=== PATIENT | female | born 1970 ===

== ENCOUNTER 2025-03-11 07:45 | Inpatient (IN) | payer OTHER ==
[~2025-03-11] VITALS: Ht 162.6 cm; Wt 82.1 kg
[2025-03-13] MEDS ORDERED: CEFTRIAXONE SODIUM 2,000 MG VIAL IV ONE (08:45)
[2025-03-13] MEDS ORDERED: METRONIDAZOLE/SODIUM CHLORIDE 500 MG/100 ML PIGGYBACK IV ONE (08:45)
[2025-03-13] MEDS ORDERED: hydrALAZINE HCL 20 MG VIAL IV ONE (10:30)
[2025-03-13] MEDS ORDERED: SUGAMMADEX SODIUM 200 MG/2 ML VIAL IV ONE (10:30)
[2025-03-13] MEDS ORDERED: TAMSULOSIN HCL 0.4 MG CAP PO SCH (11:10)
[2025-03-13] MEDS ORDERED: LACTOBACILLUS ACIDOPHILUS 1 CAP CAP PO SCH (11:10)
[2025-03-13] MEDS ORDERED: CIPROFLOXACIN IN 5 % DEXTROSE 400 MG/200 ML PIGGYBAG IV SCH (11:10)
[2025-03-13] MEDS ORDERED: MORPHINE SULFATE 4 MG/ML CARTRIDGE IV PRN (11:15)
[2025-03-13] MEDS ORDERED: OxyCODONE HCL 5 MG TABLET (ROXICODONE) PO PRN (11:15)
[2025-03-13] MEDS ORDERED: ONDANSETRON HCL 2 MG/ML VIAL IV PRN (11:15)
[2025-03-13] MEDS ORDERED: RINGERS SOLUTION,LACTATED 1,000 ML IV SCH (11:15)
[2025-03-13] MEDS ORDERED: MORPHINE SULFATE 4 MG/ML VIAL IV ONE ×2 (11:30→16:00)
[2025-03-13] MEDS ORDERED: ACETAMINOPHEN 500 MG GEL..CAP PO SCH (12:00)
[2025-03-13] MEDS ORDERED: HYOSCYAMINE SULFATE 0.125 MG TAB.SUBL SL SCH (13:00)
[2025-03-13] MEDS ORDERED: GABAPENTIN 300 MG CAPSULE PO SCH (17:00)
[2025-03-13] MEDS ORDERED: METRONIDAZOLE/SODIUM CHLORIDE 500 MG/100 ML PIGGYBACK IV SCH (17:00)
[2025-03-13 17:31] VITALS: BP 176/81; O2SAT 96
[2025-03-13] MEDS ORDERED: FAMOTIDINE/PF 20 MG/2 ML VIAL IV PUSH SCH (21:00)
[2025-03-14 01:28] VITALS: BP 111/66; O2SAT 98
[2025-03-14 07:58] LABS: BUN CREA RATIO 10.0 (7.0-25.0); CREATININE SERUM 0.61 mg/dL (0.55-1.02); GFR 102.21; GLUCOSE FASTING 109.0 mg/dL (65-100); OSMOLALITY SERUM 285.0 MOSM/KG (275-295)
[2025-03-14 08:20] LABS: BASO % 0.1 % (0.1-1.2); EOS # 0.01 (0.04-0.54); EOS % 0.1 % (0.7-7.0); LYMPH # 1.69 (1.18-3.74); LYMPH % 19.2 % (19.3-53.1); MEAN PLATELET VOLUME 11.10 fl (9.4-12.4); MONO # 0.78 (0.24-0.82); MONO % 8.8 % (4.7-12.5); NEUT # 6.31 (1.56-6.13); NEUT % 71.6 % (34.0-71.1); RED CELL DISTRIBUTION WIDTH 12.8 % (11.6-14.4)
[2025-03-14 09:02] VITALS: BP 121/70; O2SAT 96
[2025-03-14 16:00] VITALS: BP 125/72; O2SAT 95
[2025-03-14] MEDS ORDERED: ENOXAPARIN SODIUM 40 MG/0.4 ML SYRINGE SUBCUTANEO SCH (17:00)
[2025-03-15 02:45] VITALS: BP 132/81; O2SAT 100
[2025-03-15 07:33] LABS: BASO % 0.3 % (0.1-1.2); EOS # 0.04 (0.04-0.54); EOS % 0.7 % (0.7-7.0); LYMPH # 1.72 (1.18-3.74); LYMPH % 28.3 % (19.3-53.1); MEAN PLATELET VOLUME 10.80 fl (9.4-12.4); MONO # 0.54 (0.24-0.82); MONO % 8.9 % (4.7-12.5); NEUT # 3.74 (1.56-6.13); NEUT % 61.6 % (34.0-71.1); RED CELL DISTRIBUTION WIDTH 12.7 % (11.6-14.4)
[2025-03-15 07:36] LABS: BUN CREA RATIO 10.0 (7.0-25.0); CREATININE SERUM 0.63 mg/dL (0.55-1.02); GFR 98.47; GLUCOSE FASTING 106.0 mg/dL (65-100); OSMOLALITY SERUM 287.0 MOSM/KG (275-295)
[2025-03-15] MEDS ORDERED: ENOXAPARIN SODIUM 40 MG/0.4 ML SYRINGE SUBCUTANEO SCH (09:00)
[2025-03-15 09:12] VITALS: BP 127/71; O2SAT 99
[2025-03-15] MEDS ORDERED: INTESTINEX680 M1 PO (14:19)
[2025-03-15] MEDS ORDERED: HYOSCYAMINE0.125 M1 SL (14:19)
[2025-03-15 16:17] VITALS: BP 116/79; O2SAT 97
== END 2025-03-15 19:05 | disposition home or self-care (01) | DRG 331 ==
LOC: SURH 03-13 06:50 → O/R 03-13 10:12 → SURH 03-13 12:57
PROVIDERS: Internal Medicine Geriatric Medicine; ADMIT Surgery; ATTEND Surgery
PROC: 0DBP4ZZ Excision of Rectum, Percutaneous Endoscopic Approach (ICD-10-PCS; 2025-03-13)
PROC: 07BC4ZZ Excision of Pelvis Lymphatic, Percutaneous Endoscopic Approach (ICD-10-PCS; 2025-03-13)
PROC: 8E0W4CZ Robotic Assisted Procedure of Trunk Region, Percutaneous Endoscopic Approach (ICD-10-PCS; 2025-03-13)
PROC: 0DTN4ZZ Resection of Sigmoid Colon, Percutaneous Endoscopic Approach (ICD-10-PCS; principal; 2025-03-13 06:50)
DX: C18.7 Malignant neoplasm of sigmoid colon (principal)
CPT/HCPCS: 44207 ×2; 38571; 44213; S2900